=== PATIENT | female | born 1975 | race Hispanic/Latino ===

== ENCOUNTER 2023-10-29 20:59 | Emergency (ER) | payer MEDICAID, OTHER ==
[~2023-10-29] VITALS: Ht 157.5 cm; Wt 56.7 kg
[2023-10-29] MEDS ORDERED: BUTA-271 PO (22:42)
[2023-10-29] MEDS: IBUPROFEN 800 MG TAB PO ONE (22:43)
[2023-10-29] MEDS: CYCLOBENZAPRINE HCL 10 MG TABLET PO ONE (22:43)
[2023-10-29] MEDS: DEXAMETHASONE SOD PHOSPHATE 4 MG/ML 1ML VIAL IM ONE (22:43)
[2023-10-29 22:49] VITALS: BP 156/85; PULSE 75; RESP 18; O2SAT 99
== END 2023-10-29 22:49 | disposition home or self-care (01) ==
LOC: EDH 20:59
DX: G44.209 Tension-type headache, unspecified, not intractable (principal); Z98.890 Other specified postprocedural states
CPT/HCPCS: 99283; 96372; J1100